=== PATIENT | male | born 1945 | race Hispanic/Latino ===

== ENCOUNTER 2021-04-02 09:00 | Observation (INO) | payer MEDICARE ==
[~2021-04-02] VITALS: Ht 175.3 cm; Wt 98.2 kg
[~2021-04-02 09:00] MED LIST: ASPI-556 PO; METF-444 PO; METO-409 PO
[2021-04-02 11:36] LABS: BASOPHILS % (AUTO) 0.4 % (0.0-5.0); EOSINOPHILS % (AUTO) 2.5 % (0.0-8.0); HEMATOCRIT 38.9 % (42-54); LYMPHOCYTES % (AUTO) 31.5 % (21.0-51.0); MEAN CORPUSCULAR HEMOGLOBIN 29.8 pg (27.0-33.0); MEAN CORPUSCULAR HGB CONC 34.2 g/dL (32.0-36.0); MONOCYTES % (AUTO) 10.6 % (3.0-13.0); NEUTROPHILS % (AUTO) 54.6 % (40.0-77.0); PLATELET COUNT (AUTO) 188 K/uL (130-400); RED BLOOD CELL COUNT(AUTO) 4.47 MIL/uL (4.50-6.20); RED CELL DISTRIBUTION WIDTH 12.8 % (11.0-15.5); WHITE BLOOD COUNT (AUTO) 5.2 K/uL (4.8-10.8)
[2021-04-02 11:43] LABS: POTASSIUM 4.3 mmol/L (3.5-5.1)
[2021-04-03 09:46] VITALS: BP 143/75
[2021-04-03] MEDS ORDERED: CETI10TA57 PO (11:09)
[2021-04-03] MEDS ORDERED: UBID100C10 PO (11:09)
[2021-04-03] MEDS ORDERED: LISI20TA24 PO (11:09)
[2021-04-03] MEDS ORDERED: PREG75CA75 PO (11:09)
[2021-04-03] MEDS ORDERED: CHLO25TA3 PO (11:09)
[2021-04-03] MEDS ORDERED: EVOL140S2 SQ (11:09)
[2021-04-04] VITALS (26 sets, daily range): BP systolic 83–116; BP diastolic 41–80
[2021-04-04] MEDS: CEFAZOLIN SODIUM 1 GM VIAL IVP SCH ×2 (06:00→07:58)
[2021-04-04] MEDS ORDERED: 0.9%NACL 1000ML 1,000 ML IV ONE (06:20)
[2021-04-04] MEDS ORDERED: SUCCINYLCHOLINE CHLORIDE 20 MG/ML 10 ML VIAL ONE (06:50)
[2021-04-04] MEDS ORDERED: CEFAZOLIN SODIUM 1 GM VIAL ONE ×2 (06:50→11:05)
[2021-04-04] MEDS ORDERED: DEXAMETHASONE SOD PHOSPHATE 10MG/ML 1ML VIAL ONE ×2 (06:50→06:53)
[2021-04-04] MEDS ORDERED: LIDOCAINE PF 100MG/5ML (2%) SYRINGE 5ML ONE (06:50)
[2021-04-04] MEDS ORDERED: PROPOFOL 10 MG/ML 20ML VIAL IV ONE (06:50)
[2021-04-04] MEDS ORDERED: BUPIVACAINE/EPI/PF 0.25% 30ML VIAL IJ ONE (06:51)
[2021-04-04] MEDS ORDERED: GLYCOPYRROLATE 1 MG/5 ML SYRINGE ONE (06:51)
[2021-04-04] MEDS ORDERED: MIDAZOLAM HCL 1 MG/ML 2ML VIAL ONE (06:51)
[2021-04-04] MEDS ORDERED: THROMBIN-JMI 20000 UNIT KIT TP ONE (06:51)
[2021-04-04] MEDS ORDERED: NEOSTIGMINE 5MG/5ML SYR IV ONE (06:52)
[2021-04-04] MEDS ORDERED: FENTANYL CITRATE PF 50 MCG/1 ML 2ML VIAL ONE ×3 (06:52→11:13)
[2021-04-04] MEDS ORDERED: ONDANSETRON 4MG INJ ONE ×2 (06:52→06:53)
[2021-04-04] MEDS ORDERED: ROCURONIUM 10MG/1ML SYR 10 MG/ML ML ONE ×2 (06:52→08:12)
[2021-04-04] MEDS ORDERED: MANNITOL 20% 500ML BAG 500 ML IV ONE (07:30)
[2021-04-04] MEDS ORDERED: PHENYLEPHRINE HCL 10 MG/ML 1ML VIAL IV ONE ×2 (08:10→10:31)
[2021-04-04] MEDS ORDERED: ARTIFICIAL TEARS 3.5 GM OINTMENT ONE (08:10)
[2021-04-04] MEDS ORDERED: GENTAMICIN SULFATE 80 MG/2 ML VIAL ONE (08:30)
[2021-04-04] MEDS ORDERED: REPATHA 140 MG SQ SCH (09:00)
[2021-04-04] MEDS ORDERED: EPHEDRINE SULFATE 50 MG/ML AMPULE ONE (10:20)
[2021-04-04] MEDS ORDERED: MORPHINE 2 MG SYG IVP PRN (13:00)
[2021-04-04] MEDS: LACTATED RINGERS 1000ML 1,000 ML IV SCH ×2 (13:00→18:38)
[2021-04-04] MEDS: DEXAMETHASONE SOD PHOSPHATE 4 MG/ML 1ML VIAL IVP SCH ×2 (13:00→18:37)
[2021-04-04] MEDS ORDERED: 0.9%NACL 10ML VIAL IVP PRN (13:00)
[2021-04-04] MEDS ORDERED: PROMETHAZINE HCL 25 MG/ML 1ML AMPULE IM PRN (13:00)
[2021-04-04] MEDS: PREGABALIN 75 MG CAPSULE PO SCH (19:58)
[2021-04-04] MEDS: HYDROCODONE/ACETAMINOPHEN 5/325 MG TAB PO PRN (19:59)
[2021-04-04] MEDS ORDERED: CEFAZOLIN SODIUM 1 GM VIAL IVP SCH (20:00)
[2021-04-04] MEDS: INSULIN HUMULIN R 100 UNIT/ML 3ML SQ SCH (20:51)
[2021-04-04] MEDS ORDERED: CHLORTHALIDONE 12.5 MG PO SCH (21:00)
[2021-04-05 00:13] VITALS: BP 114/72
[2021-04-05] MEDS: DEXAMETHASONE SOD PHOSPHATE 4 MG/ML 1ML VIAL IVP SCH ×2 (00:31→06:05)
[2021-04-05] MEDS: HYDROCODONE/ACETAMINOPHEN 5/325 MG TAB PO PRN (02:00)
[2021-04-05 04:35] VITALS: BP 109/65
[2021-04-05] MEDS: INSULIN HUMULIN R 100 UNIT/ML 3ML SQ SCH (06:05)
[2021-04-05 07:46] VITALS: BP 112/71
[2021-04-05] MEDS: PREGABALIN 75 MG CAPSULE PO SCH (07:55)
[2021-04-05] MEDS ORDERED: METFORMIN HCL 500 MG TABLET PO SCH (08:00)
[2021-04-05] MEDS ORDERED: METOPROLOL SUCCINATE 50 MG TAB.SR.24H PO SCH (09:00)
[2021-04-05] MEDS ORDERED: LISINOPRIL 20 MG TABLET PO SCH (09:00)
[2021-04-05] MEDS ORDERED: ASPIRIN 81 MG EC TAB PO SCH (09:00)
[2021-04-05] MEDS ORDERED: CETIRIZINE HCL 5 MG TABLET PO SCH (09:00)
[2021-04-05] MEDS ORDERED: COQ PO SCH (09:00)
== END 2021-04-05 10:50 | disposition home or self-care (01) ==
LOC: EDSTATUS 09:00 → DAHIP 04-04 05:44 → 3AH 04-04 14:05
PROVIDERS: ADMIT Neurological Surgery; ATTEND Neurological Surgery
DX: M54.12 Radiculopathy, cervical region (principal); M48.02 Spinal stenosis, cervical region; Z20.822 Contact with and (suspected) exposure to COVID-19; Z95.1 Presence of aortocoronary bypass graft; G95.9 Disease of spinal cord, unspecified; Z79.899 Other long term (current) drug therapy
CPT/HCPCS: 36415; 63047; 71045; 72020; 80051; 82948 ×6; 85025; 87635; 96374; 96375; 96376; A4215; A4221; A4222; A4223; A4344; A4600; A4649 ×2; A4663; A6260; C1776; G0378 ×22; J0330; J0690 ×4; J1100 ×6; J1580; J2001; J2250; J2370 ×2; J2405 ×2; J2704; J2710; J3010 ×3; J3490 ×4; J7030 ×2; J7120 ×2

== ENCOUNTER 2022-07-30 22:38 | Emergency (ER) | payer MEDICARE ==
[~2022-07-30] VITALS: Ht 177.8 cm; Wt 89.8 kg
[~2022-07-30 22:38] MED LIST changes: +AEC81 PO; -ASPI-556 PO; +CHLO25TA3 PO; +EVOL140S2 SQ; +ISOS30TA92 PO; +LISI10TA24 PO; +PREG75 PO; +RANO500T2 PO; +RIVA2.5T PO
[2022-07-30 23:27] LABS: BASOPHILS % (AUTO) 0.4 % (0.0-5.0); EOSINOPHILS % (AUTO) 4.4 % (0.0-8.0); HEMATOCRIT 38.9 % (42-54); LYMPHOCYTES % (AUTO) 34.2 % (21.0-51.0); MEAN CORPUSCULAR HEMOGLOBIN 30.6 pg (27.0-33.0); MEAN CORPUSCULAR HGB CONC 33.9 g/dL (32.0-36.0); MONOCYTES % (AUTO) 9.2 % (3.0-13.0); NEUTROPHILS % (AUTO) 51.6 % (40.0-77.0); PLATELET COUNT (AUTO) 153 K/uL (130-400); RED BLOOD CELL COUNT(AUTO) 4.32 MIL/uL (4.50-6.20); RED CELL DISTRIBUTION WIDTH 12.3 % (11.0-15.5); WHITE BLOOD COUNT (AUTO) 4.6 K/uL (4.8-10.8)
[2022-07-30 23:36] LABS: POTASSIUM 4.1 mmol/L (3.5-5.1)
[2022-07-30 23:38] LABS: INR 1.01 (0.85-1.15)
[2022-07-30 23:39] LABS: PARTIAL THROMBOPLASTIN TIME 30.8 SEC (26.3-35.5)
[2022-07-30 23:40] LABS: ALBUMIN 3.9 g/dL (3.5-5.0)
[2022-07-30 23:59] LABS: B-TYPE NATRIURETIC PEPTIDE 51 pg/mL (0-100)
[2022-07-31] MEDS ORDERED: IOHEXOL-350 75 ML VIAL IV ONE (00:10)
[2022-07-31 02:47] VITALS: BP 137/80
== END 2022-07-31 02:48 | disposition home or self-care (01) ==
LOC: EDH 22:38
DX: G45.9 Transient cerebral ischemic attack, unspecified (principal); E11.9 Type 2 diabetes mellitus without complications; I10 Essential (primary) hypertension; Z79.01 Long term (current) use of anticoagulants; Z79.82 Long term (current) use of aspirin; Z79.84 Long term (current) use of oral hypoglycemic drugs; Z79.899 Other long term (current) drug therapy; Z90.49 Acquired absence of other specified parts of digestive tract
CPT/HCPCS: 99285; 70450; 71045; 82550; 83721; 84484; 80053; 83880; 85025; 85610; 85730; 82948; 36415; 70496; 70498; 93005; Q9967

== ENCOUNTER → 2022-08-06 | Outpatient (CLI) | payer MEDICARE | END | disposition home or self-care (01) | LOC: RAH 14:22 | PROVIDERS: ATTEND Internal Medicine Cardiovascular Disease | DX: I25.10 Atherosclerotic heart disease of native coronary artery without angina pectoris (principal) | CPT/HCPCS: 93880 ==